=== PATIENT | male | born 1955 | race Caucasian/White ===

== ENCOUNTER 2016-11-22 02:19 | Inpatient (IN) | payer OTHER ==
[2016-11-22] VITALS (13 sets, daily range): BP systolic 0–121; BP diastolic 0–78
[~2016-11-22] VITALS: Ht 185.4 cm; Wt 111.4 kg
[2016-11-22 02:49] LABS: CREATININE 1.7 mg/dL (0.6-1.3); HEMATOCRIT 44.1 % (38.0-50.0); MCHC 33.6 G/DL (30.0-36.0); MCV 95.2 FL (86-99); MEAN PLAT.VOLUME 10.3 uM^3 (9.0-12.4); PLATELET COUNT 173 K/uL (156-360); RBC DIS.WIDTH-CV 13.2 % (11.8-14.6); RBC DIS.WIDTH-SD 46.4 % (39-53); RED BLOOD COUNT 4.63 M/uL (4.00-5.50); WHITE BLOOD COUNT 12.9 K/uL (4.1-10.2)
[2016-11-22 03:01] LABS: CHLORIDE 98 mEq/L (99-109)
[2016-11-22 03:02] LABS: SODIUM 138 mEq/L (136-147)
[2016-11-22 03:03] LABS: GLUCOSE 296 mg/dL (70-99)
[2016-11-22 03:05] LABS: ANION GAP 17 MEQ/L (2-14)
[2016-11-22 03:07] LABS: GFR ESTIMATE (CALCULATED) 39 mL/min/
[2016-11-22 03:08] LABS: UREA NITROGEN (BUN) 38 mg/dL (9-23)
[2016-11-22 03:19] LABS: TROP-I INTERPRETATION POSITIVE
[2016-11-22 03:22] LABS: TROPONIN-I 15.85 ng/mL (0.0-0.30)
[2016-11-22] MEDS ORDERED: METOPROLOL SUCC50 MG PO (03:26)
[2016-11-22] MEDS ORDERED: METFORMIN HCL1000 MG PO (03:26)
[2016-11-22] MEDS ORDERED: FUROSEMIDE40 MG PO (03:26)
[2016-11-22] MEDS ORDERED: ALTOPREV60 MG PO (03:27)
[2016-11-22] MEDS ORDERED: ALDACTONE25 MG PO (03:27)
[2016-11-22] MEDS ORDERED: TOUJEO SOL300 UNIT/1 SC (03:28)
[2016-11-22] MEDS ORDERED: NOVOLOG PE100 UNITS/ SC (03:29)
[2016-11-22 03:31] LABS: MAGNESIUM 1.8 mg/dL (1.3-2.7)
[2016-11-22 05:33] LABS: INTER. NORMALIZED RATIO 1.6; PROTHROMBIN TIME 17.8 SEC (10.2-12.9)
[2016-11-22 07:44] LABS: INTER. NORMALIZED RATIO 1.3; PROTHROMBIN TIME 14.5 SEC (10.2-12.9)
[2016-11-22] MEDS ORDERED: METOPROLOL SUC200 MG PO (08:18)
[2016-11-22] MEDS ORDERED: AMARYL4 MG PO (08:21)
[2016-11-22] MEDS ORDERED: GLYXAMBI 25 MG1 EACH PO (08:21)
[2016-11-22] MEDS ORDERED: FISH OIL 1,2001 EAC5 PO (08:22)
[2016-11-22] MEDS ORDERED: CLARITIN,ALAVAR10 MG PO (08:22)
[2016-11-22] MEDS ORDERED: SAW PALMETTO450 MG PO (08:23)
[2016-11-22] MEDS ORDERED: MULTI VITAMIN1 EACH PO (08:24)
[2016-11-22] MEDS ORDERED: VITAMIN C1000 MG PO (08:24)
[2016-11-22 08:43] LABS: METH RESISTANT S AUREUS PCR NEGATIVE (NEGATIVE)
[2016-11-22 08:46] LABS: PROBE CHECK PASS; SPECIMEN PROCESSING CONTROL PASS
[2016-11-22 09:48] LABS: TROP-I INTERPRETATION POSITIVE; TROPONIN-I 13.33 ng/mL (0.0-0.30)
[2016-11-22 12:53] LABS: POINT-OF-CARE METER ID UU14162636
[2016-11-22 16:25] LABS: POINT-OF-CARE METER ID UU14162636
[2016-11-22 16:47] LABS: TROP-I INTERPRETATION POSITIVE; TROPONIN-I 12.65 ng/mL (0.0-0.30)
[2016-11-22 16:48] LABS: TROP-I INTERPRETATION POSITIVE; TROPONIN-I 12.65 ng/mL (0.0-0.30)
[2016-11-22 20:28] LABS: TROP-I INTERPRETATION POSITIVE; TROPONIN-I 13.53 ng/mL (0.0-0.30)
[2016-11-22 22:10] LABS: BASE EXCESS -7.5 mEq/L (-3 to +3); BICARBONATE 17.4 mEq/L (22-26); CARBOXY HGB 1.8 % (0-5); COMMENTS - BLOOD GASES A+C+; DEVICE NC; METHEMOGLOBIN 1.4 % (0-1.5); O2 FLOW 4 L/MIN; PCO2 33 mm Hg (35-45); PO2 98 mm Hg (80-100); SITE LR; TOTAL RESP RATE 20 resp/min; pH 7.33 (7.35-7.45)
[2016-11-23] VITALS (17 sets, daily range): BP systolic 92–134; BP diastolic 50–89
[2016-11-23 06:10] LABS: ANION GAP 17 MEQ/L (2-14); CHLORIDE 93 MEQ/L (99-109); GFR ESTIMATE (CALCULATED) 33 mL/min/; GLUCOSE 339 mg/dL (70-99); POTASSIUM 4.5 MEQ/L (3.7-5.4); SAMPLE HEMOLYSIS CHECK 0; SAMPLE ICTERIC CHECK 0; SAMPLE LIPEMIA CHECK 0; UREA NITROGEN (BUN) 56 mg/dL (9-23)
[2016-11-23 06:12] LABS: SODIUM 130 MEQ/L (136-147)
[2016-11-23 06:25] LABS: HEMATOCRIT 43.1 % (38.0-50.0); MCHC 32.5 G/DL (30.0-36.0); MCV 95.4 FL (86-99); RBC DIS.WIDTH-CV 13.4 % (11.8-14.6); RBC DIS.WIDTH-SD 46.9 % (39-53); RED BLOOD COUNT 4.52 M/uL (4.00-5.50); WHITE BLOOD COUNT 11.5 K/uL (4.1-10.2)
[2016-11-23 06:49] LABS: MEAN PLAT.VOLUME 10.4 uM^3 (9.0-12.4); PLAT.SUFFICIENCY DECREASED
[2016-11-23 07:11] LABS: PLATELET COUNT 101 K/uL (156-360)
[2016-11-23 07:45] LABS: POINT-OF-CARE METER ID UU13113781
[2016-11-23 10:03] LABS: MAGNESIUM 2.6 mg/dl (1.3-2.7)
[2016-11-23 10:36] LABS: INTER. NORMALIZED RATIO 2.1
[2016-11-23 10:48] LABS: PROTHROMBIN TIME 24.2 SEC (10.2-12.9); PTT 104.6 SEC (25-37)
[2016-11-23 12:00] LABS: METH RESISTANT S AUREUS PCR NEGATIVE (NEGATIVE); PROBE CHECK PASS; SPECIMEN PROCESSING CONTROL PASS
[2016-11-23 12:22] LABS: POINT-OF-CARE METER ID UU14162636
[2016-11-23 17:23] LABS: TROP-I INTERPRETATION POSITIVE; TROPONIN-I 8.79 ng/mL (0.0-0.30)
[2016-11-23 17:55] LABS: POINT-OF-CARE METER ID UU13113748
[2016-11-23 21:41] LABS: POINT-OF-CARE METER ID UU13113748
[2016-11-24] VITALS (16 sets, daily range): BP systolic 83–123; BP diastolic 59–78
[2016-11-24 01:36] LABS: POINT-OF-CARE METER ID UU13113731
[2016-11-24 05:41] LABS: EOSINOPHIL (%) 0.5 % (0-5); EOSINOPHIL COUNT 0.1 K/uL (0-0.3); HEMATOCRIT 39.1 % (38.0-50.0); IMMATURE GRANULOCYTE COUNT 0.1 K/uL; INSTRUMENT ABS NEUTROPHIL CT 8.2 K/uL; LYMPHOCYTE COUNT 1.2 K/uL (1.0-2.8); MCH 32.9 PG (29.0-34.0); MCHC 35.3 G/DL (30.0-36.0); MCV 93.1 FL (86-99); MEAN PLAT.VOLUME 11.5 uM^3 (9.0-12.4); MONOCYTE (%) 4.9 % (3-12); MONOCYTE COUNT 0.5 K/uL (0-0.8); NEUTROPHIL (%) 81.3 % (45-76); NEUTROPHIL COUNT 8.2 K/uL (1.8-6.4); NRBC (%) 0.2 /100 WBC (0-0); PLATELET COUNT 73 K/uL (156-360); RBC DIS.WIDTH-CV 13.3 % (11.8-14.6); RBC DIS.WIDTH-SD 45.6 % (39-53); WHITE BLOOD COUNT 10.1 K/uL (4.1-10.2)
[2016-11-24 06:48] LABS: ANION GAP 13 MEQ/L (2-14); CHLORIDE 97 MEQ/L (99-109); GFR ESTIMATE (CALCULATED) 36 mL/min/; MAGNESIUM 2.5 mg/dl (1.3-2.7); SAMPLE HEMOLYSIS CHECK 0; SAMPLE ICTERIC CHECK 0; SAMPLE LIPEMIA CHECK 0; SODIUM 134 MEQ/L (136-147); UREA NITROGEN (BUN) 64 mg/dL (9-23)
[2016-11-24 06:52] LABS: GLUCOSE 162 mg/dL (70-99); POTASSIUM 3.5 MEQ/L (3.7-5.4)
[2016-11-24 07:18] LABS: PTT 90.1 SEC (25-37)
[2016-11-24 08:35] LABS: INTER. NORMALIZED RATIO 5.8; PROTHROMBIN TIME 69.2 SEC (10.2-12.9)
[2016-11-24 08:45] LABS: POINT-OF-CARE METER ID UU13113748
[2016-11-24 09:29] LABS: FIBRINOGEN 200 mg/dL (150-450)
[2016-11-24 09:40] LABS: BASELINE PT 69.2 SEC (9.9-11.1)
[2016-11-24 10:18] LABS: ALKALINE PHOSPHATASE 82 IU/L (3-129); DIRECT BILIRUBIN 0.8 mg/dL (0.0-0.3); TOTAL BILIRUBIN 1.9 MG/DL (0.0-1.0)
[2016-11-24 12:33] LABS: POINT-OF-CARE METER ID UU13113748
[2016-11-24 17:59] LABS: POINT-OF-CARE METER ID UU13113748
[2016-11-25 13:07] LABS: Heparin Induced Plt Ab Negative (Negative)
[2016-11-25 17:15] LABS: UFH SRA Result Negative (Negative)
== END 2016-11-24 18:30 | disposition short-term general hospital (02) | DRG 280 ==
LOC: EME → EDBD 02:19 → ENRESERV 04:54 → CATH 05:29 → EME 05:29 → 4WEST 06:53 → 4EAST 06:53 → 4WEST 09:32 → ENRESERV 15:49 → 4EAST 16:55 → ENRESERV 11-23 09:40 → 4WEST 11-23 10:05
PROVIDERS: Emergency Medicine; Hospitalist; Internal Medicine; Internal Medicine Cardiovascular Disease; Internal Medicine Critical Care Medicine
PROC: B2151ZZ Fluoroscopy of Left Heart using Low Osmolar Contrast (ICD-10-PCS; principal; 2016-11-22)
PROC: 4A033BC Measurement of Arterial Pressure, Coronary, Percutaneous Approach (ICD-10-PCS; principal; 2016-11-22)
PROC: B2111ZZ Fluoroscopy of Multiple Coronary Arteries using Low Osmolar Contrast (ICD-10-PCS; principal; 2016-11-22)
PROC: 4A023N7 Measurement of Cardiac Sampling and Pressure, Left Heart, Percutaneous Approach (ICD-10-PCS; principal; 2016-11-22)
PROC: 5A09357 Assistance with Respiratory Ventilation, Less than 24 Consecutive Hours, Continuous Positive Airway Pressure (ICD-10-PCS; 2016-11-22)
DX: I21.4 Non-ST elevation (NSTEMI) myocardial infarction (principal); I50.23 Acute on chronic systolic (congestive) heart failure; J96.01 Acute respiratory failure with hypoxia; R57.0 Cardiogenic shock; I47.2 Ventricular tachycardia; B17.9 Acute viral hepatitis, unspecified; I42.0 Dilated cardiomyopathy; I82.441 Acute embolism and thrombosis of right tibial vein; N17.9 Acute kidney failure, unspecified; E87.1 Hypo-osmolality and hyponatremia; I25.110 Atherosclerotic heart disease of native coronary artery with unstable angina pectoris; I49.3 Ventricular premature depolarization; E78.5 Hyperlipidemia, unspecified; G47.33 Obstructive sleep apnea (adult) (pediatric); I25.82 Chronic total occlusion of coronary artery; I11.0 Hypertensive heart disease with heart failure; I73.9 Peripheral vascular disease, unspecified; E11.9 Type 2 diabetes mellitus without complications; E66.9 Obesity, unspecified; Z79.4 Long term (current) use of insulin; Z68.34 Body mass index [BMI] 34.0-34.9, adult; I25.2 Old myocardial infarction; Z95.810 Presence of automatic (implantable) cardiac defibrillator; Z60.2 Problems related to living alone; Z79.84 Long term (current) use of oral hypoglycemic drugs; Z86.73 Personal history of transient ischemic attack (TIA), and cerebral infarction without residual deficits; Z82.49 Family history of ischemic heart disease and other diseases of the circulatory system; Z83.3 Family history of diabetes mellitus
CPT/HCPCS: 36600; 71010; 78582; 80047; 80048; 80076; 82803; 82948; 83735; 83880; 84484; 85025; 85027; 85347; 85379; 85384; 85610; 85610 GA; 85611; 85730; 86022 90; 86850; 86900; 86901; 87641; 93005; 93306; 93970; 94660; 94799; 99281; 99285; A9540; A9567; C1750; C1760; C1769; C1894; J0883; J1644; J1815; J1940; J2060; J2250; J3010; J3475; J7030; J7050; J7070

== ENCOUNTER 2016-12-15 11:08 | Observation (INO) | payer OTHER ==
[~2016-12-15] VITALS: Ht 172.7 cm; Wt 103.6 kg
[~2016-12-15 11:08] MED LIST: ALDACTONE25 MG PO; AMARYL4 MG PO; CLARITIN,ALAVAR10 MG PO; FISH OIL 1,2001 EAC5 PO; GLYXAMBI 25 MG1 EACH PO; LASIX80 MG PO; LIPITOR40 MG PO; METFORMIN HCL1000 MG PO; METOPROLOL SUC200 MG PO; METOPROLOL SUCC25 MG PO; MULTI VITAMIN1 EACH PO; NOVOLOG PE100 UNITS/ SC; SAW PALMETTO450 MG PO; TOUJEO SOL300 UNIT/1 SC; VITAMIN C1000 MG PO
[2016-12-15 11:37] LABS: POINT-OF-CARE METER ID UU13113747
[2016-12-15] MEDS ORDERED: LEVAQUIN750 MG PO (12:04)
[2016-12-15 13:40] LABS: INTER. NORMALIZED RATIO 3.8; PROTHROMBIN TIME 44.1 SEC (10.2-12.9)
[2016-12-15 13:42] LABS: BASOPHIL COUNT 0.1 K/uL (0-0.1); CHLORIDE 94 mEq/L (99-109); EOSINOPHIL (%) 1.4 % (0-5); EOSINOPHIL COUNT 0.1 K/uL (0-0.3); HEMATOCRIT 41.4 % (38.0-50.0); IMMATURE GRANULOCYTE (%) 0.7 % (0.0-0.7); IMMATURE GRANULOCYTE COUNT 0.1 K/uL; INSTRUMENT ABS NEUTROPHIL CT 7.5 K/uL; LYMPHOCYTE COUNT 0.9 K/uL (1.0-2.8); MCH 31.3 PG (29.0-34.0); MCHC 33.8 G/DL (30.0-36.0); MCV 92.6 FL (86-99); MONOCYTE (%) 6.1 % (3-12); MONOCYTE COUNT 0.6 K/uL (0-0.8); NEUTROPHIL (%) 81.3 % (45-76); NEUTROPHIL COUNT 7.5 K/uL (1.8-6.4); PLATELET COUNT 182 K/uL (156-360); POTASSIUM 5.1 mEq/L (3.7-5.4); RBC DIS.WIDTH-CV 13.2 % (11.8-14.6); RBC DIS.WIDTH-SD 45.4 % (39-53); RED BLOOD COUNT 4.47 M/uL (4.00-5.50); SODIUM 130 mEq/L (136-147); WHITE BLOOD COUNT 9.2 K/uL (4.1-10.2)
[2016-12-15 13:44] LABS: GLUCOSE 161 mg/dL (70-99)
[2016-12-15 13:46] LABS: ANION GAP 13 MEQ/L (2-14)
[2016-12-15 13:47] LABS: PTT 32.2 SEC (25-37)
[2016-12-15 13:48] LABS: GFR ESTIMATE (CALCULATED) 47 mL/min/
[2016-12-15 13:49] LABS: UREA NITROGEN (BUN) 31 mg/dL (9-23)
[2016-12-15 13:54] LABS: TROP-I INTERPRETATION NEGATIVE; TROPONIN-I 0.05 ng/mL (0.0-0.30)
[2016-12-15] MEDS ORDERED: LISINOPRIL2.5 MG PO (15:00)
[2016-12-15] MEDS ORDERED: LO-DOSE ASPIRIN81 M1 PO (15:01)
[2016-12-15] MEDS ORDERED: WARFARIN SODIUM5 MG PO (15:02)
[2016-12-15] MEDS ORDERED: CORDARONE200 MG PO (15:04)
[2016-12-15 17:11] VITALS: BP 99/55
[2016-12-15 18:06] LABS: POINT-OF-CARE METER ID UU13113700
[2016-12-15 19:45] VITALS: BP 82/52
[2016-12-15 23:40] VITALS: BP 83/53
[2016-12-16 04:27] VITALS: BP 94/55
[2016-12-16 05:44] LABS: BASOPHIL COUNT 0.1 K/uL (0-0.1); EOSINOPHIL (%) 5.5 % (0-5); EOSINOPHIL COUNT 0.5 K/uL (0-0.3); HEMATOCRIT 38.7 % (38.0-50.0); IMMATURE GRANULOCYTE (%) 0.6 % (0.0-0.7); IMMATURE GRANULOCYTE COUNT 0.1 K/uL; INSTRUMENT ABS NEUTROPHIL CT 5.6 K/uL; LYMPHOCYTE COUNT 1.6 K/uL (1.0-2.8); MCHC 33.1 G/DL (30.0-36.0); MCV 93.7 FL (86-99); MEAN PLAT.VOLUME 9.5 uM^3 (9.0-12.4); MONOCYTE (%) 11.2 % (3-12); NEUTROPHIL (%) 63.9 % (45-76); NEUTROPHIL COUNT 5.6 K/uL (1.8-6.4); PLATELET COUNT 196 K/uL (156-360); RBC DIS.WIDTH-CV 13.2 % (11.8-14.6); RBC DIS.WIDTH-SD 45.5 % (39-53); RED BLOOD COUNT 4.13 M/uL (4.00-5.50); WHITE BLOOD COUNT 8.7 K/uL (4.1-10.2)
[2016-12-16 06:00] LABS: INTER. NORMALIZED RATIO 3.8; PROTHROMBIN TIME 43.9 SEC (10.2-12.9)
[2016-12-16 06:10] LABS: ANION GAP 11 MEQ/L (2-14); CHLORIDE 96 MEQ/L (99-109); GFR ESTIMATE (CALCULATED) 44 mL/min/; GLUCOSE 151 mg/dL (70-99); POTASSIUM 4.3 MEQ/L (3.7-5.4); SAMPLE HEMOLYSIS CHECK 0; SAMPLE ICTERIC CHECK 0; SAMPLE LIPEMIA CHECK 0; SODIUM 134 MEQ/L (136-147); UREA NITROGEN (BUN) 40 mg/dL (9-23)
[2016-12-16 07:33] VITALS: BP 97/54
[2016-12-16 07:35] VITALS: BP 91/53
[2016-12-16 07:36] VITALS: BP 98/53
[2016-12-16 08:28] LABS: ALKALINE PHOSPHATASE 58 IU/L (3-129); DIRECT BILIRUBIN 0.2 mg/dL (0.0-0.3); TOTAL BILIRUBIN 0.5 MG/DL (0.0-1.0)
[2016-12-16 08:55] LABS: POINT-OF-CARE METER ID UU13113700
[2016-12-16 12:15] LABS: POINT-OF-CARE METER ID UU13113700
[2016-12-16 12:47] VITALS: BP 101/59
== END 2016-12-16 15:36 | disposition home or self-care (01) ==
LOC: EME 11:08 → EDOF 14:28 → 5WEST 14:28 → ENRESERV 14:30 → 5WEST 16:30
PROVIDERS: Emergency Medicine; Hospitalist; Physician Assistant
DX: R55 Syncope and collapse (principal); I13.0 Hypertensive heart and chronic kidney disease with heart failure and stage 1 through stage 4 chronic kidney disease, or unspecified chronic kidney disease; N18.3 Chronic kidney disease, stage 3 (moderate); E11.22 Type 2 diabetes mellitus with diabetic chronic kidney disease; I50.22 Chronic systolic (congestive) heart failure; I42.0 Dilated cardiomyopathy; I25.10 Atherosclerotic heart disease of native coronary artery without angina pectoris; I47.2 Ventricular tachycardia; I25.2 Old myocardial infarction; E78.5 Hyperlipidemia, unspecified; Z86.73 Personal history of transient ischemic attack (TIA), and cerebral infarction without residual deficits; Z95.810 Presence of automatic (implantable) cardiac defibrillator; E86.0 Dehydration; E66.9 Obesity, unspecified; Z82.49 Family history of ischemic heart disease and other diseases of the circulatory system; Z82.3 Family history of stroke; Z79.4 Long term (current) use of insulin; Z79.01 Long term (current) use of anticoagulants; Z79.82 Long term (current) use of aspirin
CPT/HCPCS: 71010; 80048; 80076; 81003; 82948; 84484; 85025; 85610; 85730; 93005; 99281; 99285; G0378; J1815; J7030; J7050

== ENCOUNTER 2017-06-21 08:40 | Inpatient (IN) | payer OTHER ==
[~2017-06-21] VITALS: Ht 172.7 cm; Wt 113.4 kg
[~2017-06-21 08:40] MED LIST changes: +CORDARONE200 MG PO; +LEVAQUIN750 MG PO; +LISINOPRIL2.5 MG PO; +LO-DOSE ASPIRIN81 M1 PO; +WARFARIN SODIUM5 MG PO
[2017-06-21 09:17] LABS: HEMATOCRIT 46.3 % (38.0-50.0); HEMOGLOBIN 16.1 G/DL (12.5-16.6); MCHC 34.8 G/DL (30.0-36.0); MCV 97.7 FL (86-99); PLATELET COUNT 219 K/uL (156-360); RBC DIS.WIDTH-CV 12.1 % (11.8-14.6); RBC DIS.WIDTH-SD 43.9 % (39-53); RED BLOOD COUNT 4.74 M/uL (4.00-5.50); WHITE BLOOD COUNT 22.3 K/uL (4.1-10.2)
[2017-06-21 09:26] LABS: ALBUMIN 4.5 g/dL (3.2-4.8); CHLORIDE 100 mEq/L (99-109); POTASSIUM 4.8 mEq/L (3.7-5.4); SODIUM 136 mEq/L (136-147)
[2017-06-21 09:29] LABS: GLUCOSE 253 mg/dL (70-99); TOTAL PROTEIN 8.2 g/dL (6.4-8.3)
[2017-06-21 09:31] LABS: TOTAL BILIRUBIN 1.1 mg/dL (0.0-1.0)
[2017-06-21 09:32] LABS: ALKALINE PHOSPHATASE 71 IU/L (3-129); CREATININE 1.6 mg/dL (0.6-1.3); GFR ESTIMATE (CALCULATED) 47 mL/min/ (58.99-99999)
[2017-06-21 09:33] LABS: UREA NITROGEN (BUN) 35 mg/dL (9-23)
[2017-06-21 09:34] LABS: AST (GOT) 18 IU/L (2-34)
[2017-06-21 09:35] LABS: ALT (GPT) 20 IU/L (3-49)
[2017-06-21 09:45] LABS: LIPASE 16 U/L (1.0-51.0)
[2017-06-21 10:49] LABS: APPEARANCE CLEAR ((CLEAR)); BILIRUBIN NEGATIVE; BLOOD NEGATIVE; COLOR YELLOW ((YELLOW)); GLUCOSE (STRIP) >=500; KETONES 5; LEUKOCYTES NEGATIVE; NITRITE NEGATIVE; PROTEIN (STRIP) NEGATIVE; SPECIFIC GRAVITY 1.029 (1.000-1.030); UCUL ADDED? NO
[2017-06-21] MEDS ORDERED: LISINOPRIL5 MG PO (15:00)
[2017-06-21] MEDS ORDERED: ATORVASTATIN CA40 MG PO (15:01)
[2017-06-21] MEDS ORDERED: ZOLPIDEM TARTRA10 MG PO (15:02)
[2017-06-21] MEDS ORDERED: FUROSEMIDE20 MG PO (15:02)
[2017-06-21] MEDS ORDERED: SPIRONOLACTONE25 MG PO (15:03)
[2017-06-21] MEDS ORDERED: PACERONE100 MG PO (15:04)
[2017-06-21] MEDS ORDERED: METOPROLOL SUC100 MG PO (15:05)
[2017-06-21] MEDS ORDERED: TRESIBA FL200 UNIT/1 SC ×2 (15:06→22:04)
[2017-06-21] MEDS ORDERED: SYNJARDY 5-1,01 EACH PO (15:14)
[2017-06-21 20:07] VITALS: BP 112/56
[2017-06-21 23:19] VITALS: BP 100/40
[2017-06-22 06:07] LABS: INTER. NORMALIZED RATIO 1.3
[2017-06-22 06:09] LABS: PTT 29.3 SEC (25-37)
[2017-06-22 06:14] VITALS: BP 103/53
[2017-06-22 06:22] LABS: HEMATOCRIT 39.9 % (38.0-50.0); MCH 34.1 PG (29.0-34.0); MCHC 33.8 G/DL (30.0-36.0); MCV 100.8 FL (86-99); RBC DIS.WIDTH-CV 12.6 % (11.8-14.6); RBC DIS.WIDTH-SD 47.2 % (39-53); RED BLOOD COUNT 3.96 M/uL (4.00-5.50); WHITE BLOOD COUNT 17.1 K/uL (4.1-10.2)
[2017-06-22 06:28] LABS: HEMOGLOBIN 13.5 G/DL (12.5-16.6); PLATELET COUNT 152 K/uL (156-360)
[2017-06-22 07:11] VITALS: BP 107/54
[2017-06-22 07:17] LABS: CHLORIDE 102 MEQ/L (99-109); CREATININE 1.4 MG/DL (0.6-1.3); GFR ESTIMATE (CALCULATED) 55 mL/min/ (58.99-99999); GLUCOSE 167 mg/dL (70-99); POTASSIUM 4.5 MEQ/L (3.7-5.4); SODIUM 137 MEQ/L (136-147); UREA NITROGEN (BUN) 31 mg/dL (9-23)
[2017-06-22 16:01] VITALS: BP 99/55
[2017-06-22 19:20] VITALS: BP 105/54
[2017-06-22 23:43] VITALS: BP 98/47
[2017-06-23] VITALS (7 sets, daily range): BP systolic 100–113; BP diastolic 51–66
[2017-06-23 05:25] LABS: BASOPHIL (%) 0.2 % (0-1); EOSINOPHIL (%) 0.8 % (0-5); EOSINOPHIL COUNT 0.1 K/uL (0-0.3); HEMATOCRIT 39.1 % (38.0-50.0); HEMOGLOBIN 12.6 G/DL (12.5-16.6); IMMATURE GRANULOCYTE (%) 0.6 % (0.0-0.7); LYMPHOCYTE (%) 11.9 % (15-42); LYMPHOCYTE COUNT 1.5 K/uL (1.0-2.8); MCH 32.7 PG (29.0-34.0); MCHC 32.2 G/DL (30.0-36.0); MCV 101.6 FL (86-99); MONOCYTE (%) 6.1 % (3-12); MONOCYTE COUNT 0.8 K/uL (0-0.8); NEUTROPHIL (%) 80.4 % (45-76); NEUTROPHIL COUNT 10.2 K/uL (1.8-6.4); PLATELET COUNT 138 K/uL (156-360); RBC DIS.WIDTH-CV 12.6 % (11.8-14.6); RBC DIS.WIDTH-SD 47.2 % (39-53); RED BLOOD COUNT 3.85 M/uL (4.00-5.50); WHITE BLOOD COUNT 12.7 K/uL (4.1-10.2)
[2017-06-23 05:45] LABS: ALBUMIN 3.5 G/DL (3.2-4.8); ALKALINE PHOSPHATASE 47 IU/L (3-129); ALT (GPT) 44 IU/L (3-49); AST (GOT) 42 IU/L (2-34); CHLORIDE 102 MEQ/L (99-109); CREATININE 1.3 MG/DL (0.6-1.3); DIRECT BILIRUBIN 0.2 mg/dL (0.0-0.3); GFR ESTIMATE (CALCULATED) > 59 mL/min/ (58.99-99999); GLUCOSE 140 mg/dL (70-99); POTASSIUM 4.5 MEQ/L (3.7-5.4); SODIUM 136 MEQ/L (136-147); TOTAL BILIRUBIN 0.8 MG/DL (0.0-1.0); TOTAL PROTEIN 6.6 G/DL (6.4-8.3); UREA NITROGEN (BUN) 28 mg/dL (9-23)
[2017-06-24 03:42] VITALS: BP 118/58
[2017-06-24 05:26] LABS: BASOPHIL (%) 0.4 % (0-1); EOSINOPHIL (%) 1.9 % (0-5); EOSINOPHIL COUNT 0.2 K/uL (0-0.3); HEMATOCRIT 38.8 % (38.0-50.0); HEMOGLOBIN 13.2 G/DL (12.5-16.6); IMMATURE GRANULOCYTE (%) 0.5 % (0.0-0.7); LYMPHOCYTE (%) 15.3 % (15-42); LYMPHOCYTE COUNT 1.6 K/uL (1.0-2.8); MCH 33.2 PG (29.0-34.0); MCV 97.7 FL (86-99); MONOCYTE (%) 7.9 % (3-12); MONOCYTE COUNT 0.8 K/uL (0-0.8); NEUTROPHIL COUNT 7.5 K/uL (1.8-6.4); RBC DIS.WIDTH-CV 12.2 % (11.8-14.6); RBC DIS.WIDTH-SD 44.6 % (39-53); RED BLOOD COUNT 3.97 M/uL (4.00-5.50); WHITE BLOOD COUNT 10.2 K/uL (4.1-10.2)
[2017-06-24 05:37] LABS: PLATELET COUNT 181 K/uL (156-360)
[2017-06-24 05:53] LABS: ALBUMIN 3.6 G/DL (3.2-4.8); ALKALINE PHOSPHATASE 47 IU/L (3-129); ALT (GPT) 34 IU/L (3-49); CHLORIDE 98 MEQ/L (99-109); CREATININE 1.2 MG/DL (0.6-1.3); DIRECT BILIRUBIN 0.2 mg/dL (0.0-0.3); GFR ESTIMATE (CALCULATED) > 59 mL/min/ (58.99-99999); GLUCOSE 165 mg/dL (70-99); SODIUM 131 MEQ/L (136-147); TOTAL PROTEIN 6.9 G/DL (6.4-8.3); UREA NITROGEN (BUN) 23 mg/dL (9-23)
[2017-06-24 05:54] LABS: AST (GOT) 22 IU/L (2-34)
[2017-06-24 07:14] VITALS: BP 109/59
[2017-06-24] MEDS ORDERED: AUGMENTIN875 MG PO (10:32)
[2017-06-24 11:33] VITALS: BP 107/57
[2017-06-24] MEDS ORDERED: TRAMADOL HCL50 MG PO (15:01)
== END 2017-06-24 15:39 | disposition home or self-care (01) | DRG 445 ==
LOC: EME 08:40 → 3EAST 14:13 → EDOF 14:13 → ENRESERV 14:15 → 3EAST 17:57
PROVIDERS: Hospitalist; Internal Medicine; Physician Assistant; Radiology Diagnostic Radiology
PROC: 0F9430Z Drainage of Gallbladder with Drainage Device, Percutaneous Approach (ICD-10-PCS; principal; 2017-06-22)
DX: K80.00 Calculus of gallbladder with acute cholecystitis without obstruction (principal); N17.9 Acute kidney failure, unspecified; I42.0 Dilated cardiomyopathy; E11.65 Type 2 diabetes mellitus with hyperglycemia; I13.0 Hypertensive heart and chronic kidney disease with heart failure and stage 1 through stage 4 chronic kidney disease, or unspecified chronic kidney disease; I50.22 Chronic systolic (congestive) heart failure; N18.3 Chronic kidney disease, stage 3 (moderate); E11.22 Type 2 diabetes mellitus with diabetic chronic kidney disease; E86.0 Dehydration; I95.9 Hypotension, unspecified; E78.5 Hyperlipidemia, unspecified; I25.10 Atherosclerotic heart disease of native coronary artery without angina pectoris; I25.2 Old myocardial infarction; G47.33 Obstructive sleep apnea (adult) (pediatric); E66.9 Obesity, unspecified; Z68.38 Body mass index [BMI] 38.0-38.9, adult; Z79.4 Long term (current) use of insulin; Z79.82 Long term (current) use of aspirin; Z95.810 Presence of automatic (implantable) cardiac defibrillator; Z85.828 Personal history of other malignant neoplasm of skin; Z86.73 Personal history of transient ischemic attack (TIA), and cerebral infarction without residual deficits; Z82.49 Family history of ischemic heart disease and other diseases of the circulatory system; Z83.3 Family history of diabetes mellitus
CPT/HCPCS: 49406; 74176; 76705; 80048; 80053; 80076; 81003; 82248; 82948; 83690; 85025; 85027; 85610; 85730; 87070; 87075; 87205; 94799; 99281; 99285; C1769; J0692; J1644; J1815; J2405; J3010; J7030